=== PATIENT | female | born 1955 ===

== ENCOUNTER 2017-08-06 09:00 | Day surgery (SDC) | payer OTHER ==
[2017-07-20 10:43] VITALS: BMI 29.5
[2017-08-06 09:45] VITALS: O2SAT 100
[2017-08-06] MEDS ORDERED: Midazolam 2 MG/2 ML VIAL ONE (09:46)
[2017-08-06] MEDS ORDERED: Propofol 10 mg/ml Inj (20 ML) ONE ×2 (09:46→11:00)
[2017-08-06] MEDS ORDERED: Ciprofloxacin 400mg/200ml D5W 400 MG/200 ML BAG IVPB ONE (09:55)
[2017-08-06] MEDS ORDERED: Gentamicin 80 mg in 0.9% NS 0 MG/0 ML BAG IVPB ONE (09:55)
[2017-08-06] MEDS ORDERED: Iohexol 240 (50 ml) ONE (09:56)
[2017-08-06] MEDS ORDERED: Lactated Ringer's 1,000 ML IV ONE (10:30)
[2017-08-06] MEDS: HYDROmorphone 0.5 mg/0.5 ml ISec IVP PRN ×2 (11:30→11:35)
[2017-08-06 12:42] VITALS: RESP 16
[2017-08-06 14:16] VITALS: BP 121/67; PULSE 86; TEMP 98.9
--- NOTE | 2017-08-06 15:10 | RAD ---
PROCEDURE: Intraoperative Fluoroscopy. HISTORY: HEMATURIA FINDINGS: Fluoroscopic assistance was provided for bilateral retrograde study.
--- NOTE | 2017-08-06 20:01 | OP ---
PROCEDURE DATE: DESCRIPTION OF PROCEDURE: The patient brought to the OR for a cystoscopy, retrograde. The patient has microhematuria. Previous CAT scan revealed no evidence of any pathology. The patient was prepped and draped in usual manner. Epidural anesthesia was given. A #21 cystourethroscope was introduced into the bladder. The bladder appeared normal throughout. Bilateral retrograde pyelograms reveal normal collecting system except for mild extrarenal pelvis on the right with good drainage and . The patient tolerated procedure well and left the OR in good condition. Nehemiah Oconnell MD
== END 2017-08-06 13:47 | disposition home or self-care (01) ==
LOC: C.SDS 09:00
PROVIDERS: ATTEND Urology
DX: R31.29 Other microscopic hematuria (principal)
CPT/HCPCS: 52000; J0744; J1170; J2405; J7120; Q9966